=== PATIENT | female | born 1960 | race Two or more races ===

== ENCOUNTER 2019-06-12 16:33 | Emergency (ER) | payer OTHER ==
[~2019-06-12] VITALS: Ht 147.3 cm; Wt 93.9 kg
[~2019-06-12 16:33] MED LIST: ADAL40PE SQ; ALBU2.5V14 NEB; ALBU2.5V8 INH; CETI10TA22 PO; FLUT1DIS5 IH; GUAI-40 PO; GUAI12003 PO; HYDR-2145 PO; LEVO150T PO; LEVO175T2 PO; LISI10TA2 PO; MELA3TAB2 PO; PSEU120T9 PO; VENL75CA PO
[2019-06-12 17:05] VITALS: BP 159/75
[2019-06-12] MEDS ORDERED: KETOROLAC 30 MG/ML VIAL. ONE (17:26)
[2019-06-12] MEDS ORDERED: MORPHINE SULFATE 4 MG/ML DISP.SYRIN. IV ONE (17:30)
[2019-06-12] MEDS ORDERED: IV NORMAL SALINE 1,000ML 1,000 ML IV ONE (17:30)
[2019-06-12] MEDS ORDERED: ONDANSETRON PF 4 MG/2 ML VIAL. IV ONE (17:30)
[2019-06-12] MEDS ORDERED: KETOROLAC 30 MG/ML VIAL. IV ONE (17:30)
--- NOTE | 2019-06-12 17:30 | PHYS DOC ---
Past History Past Medical History: Asthma, Depression, Diverticulitis, Diabetes, High Cholesterol, Hypertension, Hypothyroid, Other Past Surgical History: Cholecystectomy, Hysterectomy Alcohol Use: None Drug Use: None Adult General Chief Complaint Chief Complaint: FLANK PAIN HPI HPI 58-year-old female presents with left lower quadrant pain and left flank pain. The patient started to have some irritation on Tuesday, but it worsened throughout the weekend. Night and all day today the pain has gotten much worse. She describes it as a deep cramping. It radiates around into her left flank. The patient has a history of diverticulitis. She has been constipated recently. She had one episode of vomiting. She denies fever or chills. She denies trauma. No history of kidney stones. Review of Systems Review of Systems Constitutional: Denies fever or chills [] Eyes: Denies change in visual acuity, redness, or eye pain [] HENT: Denies nasal congestion or sore throat [] Respiratory: Denies cough or shortness of breath [] Cardiovascular: No additional information not addressed in HPI [] GI: Left lower quadrant abdominal pain, nausea, vomiting. Denies bloody stools or diarrhea [] : Denies dysuria or hematuria [] Musculoskeletal: Denies back pain or joint pain [] Integument: Denies rash or skin lesions [] Neurologic: Denies headache, focal weakness or sensory changes [] Endocrine: Denies polyuria or polydipsia [] All other systems were reviewed and found to be within normal limits, except as documented in this note. Current Medications Current Medications Current Medications Medications (Trade) Dose Ordered Sig/[facility] Start Time Stop Time Status Last Admin Dose Admin Ketorolac Tromethamine (Toradol 30mg Vial) 30 mg 1X ONCE 06/12/19 17:30 06/12/19 17:31 UNV Ondansetron HCl (Zofran) 4 mg 1X ONCE 06/12/19 17:30 06/12/19 17:31 UNV Sodium Chloride 1,000 ml @ 1,000 mls/hr 1X ONCE 06/12/19 17:30 06/12/19 18:29 Allergies Allergies Allergies Coded Allergies Type Severity Reaction Last Updated Verified adalimumab Allergy Unknown 06/12/19 Yes Physical Exam Physical Exam Constitutional: Well developed, well nourished, mild acute distress, non-toxic appearance. In pain [] HENT: Normocephalic, atraumatic, bilateral external ears normal, oropharynx moist, no oral exudates, nose normal. [] Eyes: PERRLA, EOMI, conjunctiva normal, no discharge. [] Neck: Normal range of motion, no tenderness, supple, no stridor. [] Cardiovascular:Heart rate regular rhythm, no murmur [] Lungs & Thorax: Bilateral breath sounds clear to auscultation [] Abdomen: Bowel sounds normal, soft, LLQ tenderness, no masses, no pulsatile masses. [] Skin: Warm, dry, no erythema, no rash. [] Back: No tenderness, left CVA tenderness. [] Extremities: No tenderness, no cyanosis, no clubbing, ROM intact, no edema. [] Neurologic: Alert and oriented X 3, normal motor function, normal sensory function, no focal deficits noted. [] Psychologic: Affect normal, judgement normal, mood normal. [] EKG EKG [] Radiology/Procedures Radiology/Procedures [] Course & Med Decision Making Course & Med Decision Making Pertinent Labs and Imaging studies reviewed. (See chart for details) The patient's work up is pending. I am signing the patient out to Dr. Raymond for final disposition. [] Dragon Disclaimer Dragon Disclaimer This electronic medical record was generated, in whole or in part, using a voice recognition dictation system. Departure Departure: Referrals: ONELIA REZA MD (PCP) DARYL MALONE DO Jun 12, 2019 17:30
[2019-06-12 17:33] LABS: BASO % 0 % (0-3); EOS # 0.2 x10^3/uL (0.0-0.7); EOS % 2 % (0-3); HEMATOCRIT 46.1 % (36.0-47.0); HEMOGLOBIN 15.3 g/dL (12.0-15.5); LYMPH # 2.9 x10^3/uL (1.0-4.8); LYMPH % 28 % (24-48); MEAN CORPUSCULAR HEMOGLOBIN 28 pg (25-35); MEAN CORPUSCULAR HGB CONC 33 g/dL (31-37); MEAN CORPUSCULAR VOLUME 83 fL (79-100); MONO # 0.7 x10^3/uL (0.0-1.1); MONO % 7 % (0-9); NEUT # 6.4 x10^3uL (1.8-7.7); NEUT % 63 % (31-73); PLATELET COUNT 403 x10^3/uL (140-400); RED BLOOD COUNT 5.53 x10^6/uL (3.50-5.40); RED CELL DISTRIBUTION WIDTH 15.3 % (11.5-14.5); WHITE BLOOD COUNT 10.2 x10^3/uL (4.0-11.0)
[2019-06-12 17:45] LABS: ALBUMIN/GLOBULIN RATIO 0.8 (1.0-1.7); BACTERIA,URINE FEW /HPF (0-FEW); BILIRUBIN,URINE NEG (NEG); CLARITY,URINE HAZY; COLOR,URINE YELLOW; CREATININE 0.8 mg/dL (0.6-1.0); GFR 73.4; GLUCOSE,URINE NEG (NEG); NITRITE,URINE NEG (NEG); POTASSIUM 3.8 mmol/L (3.5-5.1); RBC,URINE OCC /HPF (0-2); SQUAMOUS EPITHELIAL CELL,UR OCC /LPF; TOTAL BILIRUBIN 0.6 mg/dL (0.2-1.0); TOTAL PROTEIN 8.8 g/dL (6.4-8.2); UROBILINOGEN,URINE 0.2 mg/dL (0.2 mg/dL)
[2019-06-12] MEDS ORDERED: IOHEXOL 300 MG/ML 75 ML VIAL. IV ONE (17:45)
--- NOTE | 2019-06-12 18:13 | RAD ---
Exam: CT abdomen and pelvis with contrast INDICATION: Left lower quadrant pain TECHNIQUE: Sequential axial images through the abdomen and pelvis obtained following the administration of 70 mL of Isovue-370 IV contrast. Sagittal and coronal reformatted images were reconstructed from the axial data and reviewed. Comparisons: None FINDINGS: Heart size is normal. No pericardial effusion. Several 2 to 3 mm pulmonary nodules are noted at the lung bases with largest lung nodule in the left lower lobe measuring 5 mm. No pleural effusion. Liver, spleen, pancreas, and adrenals are unremarkable. Gallbladder is absent. Kidneys and straight symmetric enhancement. No perinephric inflammation or hydronephrosis. No renal or ureteral calculi are identified. Bladder is partially distended person walled. Uterus is surgically absent. Submucosal fat deposition noted within the rectum and descending colon. Remainder of the large and small bowel are unremarkable. No obstruction. No free intra-abdominal air or fluid. Abdominal aorta has a normal course and caliber. Abdominal vasculature is patent. No enlarged intra-abdominal lymph nodes are identified. No suspicious osseous lesions or acute fractures. IMPRESSION: 1. No acute process identified within the abdomen or pelvis. 2. Submucosal fat deposition noted within the descending and sigmoid colon, likely representing sequela of repeated chronic inflammation. 3. Pulmonary nodules, largest measuring 5 mm in the left lower lobe. In a low risk patient no further follow-up is recommended. High-risk patient and options one year follow-up can be performed. Exposure: One or more of the following in the visualized dose reduction techniques were utilized for this examination: 1. Automated exposure control 2. Adjustment of the MA and/or KV according to patient size 3. Use of iterative of reconstructive technique Electronically signed by: Rosalind Dubois MD (06/12/2019 6:09 PM) [facility]
[2019-06-12] MEDS ORDERED: MELO7.5T29 PO (18:35)
[2019-06-12] MEDS ORDERED: HYOS0.1264 PO (18:35)
[2019-06-12] MEDS ORDERED: HYDR-3165 PO (18:35)
[2019-06-12] MEDS ORDERED: METO10TA81 PO (18:35)
== END 2019-06-12 18:56 | disposition home or self-care (01) ==
LOC: ER 16:33
DX: R10.32 Left lower quadrant pain (principal); R11.2 Nausea with vomiting, unspecified; R91.8 Other nonspecific abnormal finding of lung field; J45.909 Unspecified asthma, uncomplicated; E11.9 Type 2 diabetes mellitus without complications; E78.00 Pure hypercholesterolemia, unspecified; I10 Essential (primary) hypertension; E03.9 Hypothyroidism, unspecified; Z90.49 Acquired absence of other specified parts of digestive tract; Z90.710 Acquired absence of both cervix and uterus; Z88.8 Allergy status to other drugs, medicaments and biological substances
CPT/HCPCS: 36415; 74177; 80053; 81001; 85025; 96361; 96374; 96375; 99285; J1885; J2270; J2405; Q9967; J7030